=== PATIENT | female | born 1955 | race Caucasian/White ===

== ENCOUNTER 2016-10-15 13:20 | Emergency (ER) | payer MEDICAID ==
--- NOTE | 2016-10-15 14:26 | ED Physician Documentation ---
History of Present Illness - Stated complaint Stated Complaint: MED REFILLS - Chief complaint Chief Complaint: General - Additonal information Additional information: hx from pt 61 f moved back to [place] lost her meds on plane has no PMD here no complaints - no fever chills NVD no ROBETRS CP AP she takes coumadin for hx PE DVT - but denies CP and SOA Review of Systems Constitutional: denies: Fever, Chills Cardiac: denies: Chest pain / pressure Respiratory: denies: Dyspnea, Cough GI: denies: Abdominal Pain, Vomiting, Diarrhea Endocrine: reports: Easy bruising / bleeding (but did not take coumadin for 10 days now) Immunocompromised: denies: Immunocompromised PD PAST MEDICAL HISTORY - Past Medical History Past Medical History: Yes Cardiovascular: Hypertension, High cholesterol, Deep vein thrombosis, Pulmonary embolism Endocrine/Autoimmune: Type 2 diabetes - Past Surgical History Past Surgical History: Yes General: Cholecystectomy - Present Medications Home Medications: Ambulatory Orders Medication Instructions Recorded Confirmed HYDROcod/ACETAM 5/325 [[place] 5/325] 1 - 2 ea PO Q6H PRN #20 tablet 12/09/1404/02 Lisinopril 5 g PO DAILY 12/09/14 10/15/16 Metformin HCl 1,000 mg PO BID 12/09/14 10/15/16 Omeprazole 40 mg PO DAILY 12/09/14 10/15/16 Spironolactone 25 mg PO DAILY 12/09/14 10/15/16 Warfarin Sodium [Coumadin] 2.5 mg PO DAILY 12/09/14 10/15/16 glipiZIDE [Glucotrol] 5 mg PO BID 12/09/14 10/15/16 Ascorbic Acid [Vitamin C] 1,000 mg PO DAILY 10/15/16 10/15/16 Atorvastatin Calcium [Lipitor] 80 mg PO DAILY 10/15/16 10/15/16 Atorvastatin Calcium [Lipitor] 80 mg PO DAILY #30 tablet 10/15/16 Cholecalciferol (Vitamin D3) 1 cap PO DAILY 10/15/16 10/15/16 [Vitamin D3] Glipizide 5 mg PO BID #60 tablet 10/15/16 Magnesium Oxide [Magnesium] 400 mg PO DAILY 10/15/16 10/15/16 Niacin (Inositol Niacinate) 500 mg PO DAILY 10/15/16 10/15/16 [Niacin 500 mg Capsule] [place]-3S/Dha/Epa/Fish Oil [Fish 1 cap PO BID 10/15/16 10/15/16 Oil 1,200 mg Softgel] Omeprazole 40 mg PO DAILY #30 capsule. 10/15/16 Ranitidine HCl 150 mg PO BID 10/15/16 10/15/16 Ranitidine HCl 150 mg PO BID #60 tablet 10/15/16 Warfarin [Coumadin] 2.5 mg PO DAILY #30 tablet 10/15/16 metFORMIN [Glucophage] 1,000 mg PO BIDWM #60 tablet 10/15/16 - Allergies Allergies/Adverse Reactions: Allergies Allergy/AdvReac Type Severity Reaction Status Date / Time erythromycin base Allergy Unknown Verified 10/15/16 14:13 - Social History Does the pt smoke?: No Smoking Status: Never smoker Does the pt drink ETOH?: No Does the pt have substance abuse?: No - Immunizations Immunizations are current?: Yes - POLST Patient has POLST: No PD ED PE NORMAL - Vitals Vital signs reviewed: Yes - General General: Alert and oriented X 3 - Cardiac Cardiac: RRR - Respiratory Respiratory: No respiratory distress, Clear bilaterally - Abdomen Abdomen: Soft, Non tender Results - Vitals Vitals: Vital Signs - 24 hr 10/15/16 13:35 Temperature 36.6 C Heart Rate 69 Respiratory 18 Rate Blood Pressure 138/73 H O2 Saturation 97 Oxygen O2 Source Room air Departure - Departure Disposition: 01 Home, Self Care Clinical Impression: Medication refill Condition: Good Prescriptions: Warfarin [Coumadin] 2.5 mg PO DAILY #30 tablet Glipizide 5 mg PO BID #60 tablet metFORMIN [Glucophage] 1,000 mg PO BIDWM #60 tablet Atorvastatin Calcium [Lipitor] 80 mg PO DAILY #30 tablet Omeprazole 40 mg PO DAILY #30 capsule. Ranitidine HCl 150 mg PO BID #60 tablet Comments: I have refilled all your medications exactly as noted on your medication list - except the lisinopril and insulin which you already have The social workers were asked to help establish you with a new local PMD - specifically you need to have your INR checked on a regular basis If for some reason you cannot get established with a PMD to get your INR rechecked even with the social works assistance, come back to the ER in 2 weeks to get it checked
[2016-10-15 15:24] VITALS: BP 140/71
== END 2016-10-15 15:23 | disposition home or self-care (01) ==
LOC: ED 13:20
DX: Z76.0 Encounter for issue of repeat prescription (principal); I10 Essential (primary) hypertension; E11.9 Type 2 diabetes mellitus without complications; Z86.718 Personal history of other venous thrombosis and embolism; Z86.711 Personal history of pulmonary embolism; Z79.01 Long term (current) use of anticoagulants
CPT/HCPCS: 99281; 99282; 99283

== ENCOUNTER 2016-11-27 18:45 | Emergency (ER) | payer MEDICAID ==
[2016-11-27 19:02] VITALS: BP 165/80
--- NOTE | 2016-11-27 20:17 | ED Physician Documentation ---
History of Present Illness - Stated complaint Stated Complaint: PRESCRIPTION REFILL - Chief complaint Chief Complaint: General - Additonal information Additional information: hx from pt 61 female recently moved back to [facility] seen by me 10/15 after she lost all her meds and needed refills I asked SW to meet with pt to assist with establishing a PMD and advised pt of importnce of getting INR checked while on coumadin and to come back to ED for INR if still did not have a PMD she still has not established with a PMD and has not had her INR checked needs meds refilled again states otherwise well no fever cough NVD CP SOA etc Review of Systems Constitutional: denies: Fever Cardiac: denies: Chest pain / pressure Respiratory: denies: Dyspnea, Cough GI: denies: Abdominal Pain, Vomiting, Diarrhea Endocrine: reports: Easy bruising / bleeding (coumadin) Immunocompromised: denies: Immunocompromised PD PAST MEDICAL HISTORY - Past Medical History Cardiovascular: Hypertension, High cholesterol, Deep vein thrombosis, Pulmonary embolism Endocrine/Autoimmune: Type 2 diabetes - Past Surgical History Past Surgical History: Yes General: Cholecystectomy - Present Medications Home Medications: Ambulatory Orders Medication Instructions Recorded Confirmed HYDROcod/ACETAM 5/325 [[place] 5/325] 1 - 2 ea PO Q6H PRN #20 tablet 12/09/1404/02 Lisinopril 5 g PO DAILY 12/09/14 10/15/16 Metformin HCl 1,000 mg PO BID 12/09/14 10/15/16 Omeprazole 40 mg PO DAILY 12/09/14 10/15/16 Spironolactone 25 mg PO DAILY 12/09/14 10/15/16 Warfarin Sodium [Coumadin] 2.5 mg PO DAILY 12/09/14 10/15/16 glipiZIDE [Glucotrol] 5 mg PO BID 12/09/14 10/15/16 Ascorbic Acid [Vitamin C] 1,000 mg PO DAILY 10/15/16 10/15/16 Atorvastatin Calcium [Lipitor] 80 mg PO DAILY 10/15/16 10/15/16 Atorvastatin Calcium [Lipitor] 80 mg PO DAILY #30 tablet 10/15/16 Cholecalciferol (Vitamin D3) 1 cap PO DAILY 10/15/16 10/15/16 [Vitamin D3] Glipizide 5 mg PO BID #60 tablet 10/15/16 Magnesium Oxide [Magnesium] 400 mg PO DAILY 10/15/16 10/15/16 Niacin (Inositol Niacinate) 500 mg PO DAILY 10/15/16 10/15/16 [Niacin 500 mg Capsule] [place]-3S/Dha/Epa/Fish Oil [Fish 1 cap PO BID 10/15/16 10/15/16 Oil 1,200 mg Softgel] Omeprazole 40 mg PO DAILY #30 capsule. 10/15/16 Ranitidine HCl 150 mg PO BID 10/15/16 10/15/16 Ranitidine HCl 150 mg PO BID #60 tablet 10/15/16 Warfarin [Coumadin] 2.5 mg PO DAILY #30 tablet 10/15/16 metFORMIN [Glucophage] 1,000 mg PO BIDWM #60 tablet 10/15/16 Atorvastatin Calcium [Lipitor] 80 mg PO DAILY #30 tablet 11/27/16 Glipizide 5 mg PO BID #60 tablet 11/27/16 Lisinopril 5 mg PO DAILY #30 tablet 11/27/16 Omeprazole 40 mg PO DAILY #30 capsule. 11/27/16 Ranitidine HCl 150 mg PO BID #60 tablet 11/27/16 Warfarin [Coumadin] 2.5 mg PO DAILY #30 tablet 11/27/16 metFORMIN [Glucophage] 1,000 mg PO BIDWM #60 tablet 11/27/16 - Allergies Allergies/Adverse Reactions: Allergies Allergy/AdvReac Type Severity Reaction Status Date / Time erythromycin base Allergy Unknown Verified 11/27/16 18:57 - Social History Does the pt smoke?: No Smoking Status: Never smoker Does the pt drink ETOH?: No Does the pt have substance abuse?: No - Immunizations Immunizations are current?: Yes - POLST Patient has POLST: No PD ED PE NORMAL - Vitals Vital signs reviewed: Yes - General General: Alert and oriented X 3 - HEENT HEENT: PERRL - Neck Neck: Supple, no meningeal sign - Cardiac Cardiac: RRR - Respiratory Respiratory: No respiratory distress, Clear bilaterally Results - Vitals Vitals: Vital Signs - 24 hr 11/27/16 18:51 Temperature 36.4 C L Heart Rate 83 Respiratory 18 Rate Blood Pressure 165/80 H O2 Saturation 99 Oxygen O2 Source Room air PD MEDICAL DECISION MAKING - ED course ED course: INR 1.7, FSBS 97 Departure - Departure Disposition: 01 Home, Self Care Clinical Impression: Medication refill Condition: Good Follow-Up: [facility] [Provider Group] Prescriptions: Warfarin [Coumadin] 2.5 mg PO DAILY #30 tablet Glipizide 5 mg PO BID #60 tablet metFORMIN [Glucophage] 1,000 mg PO BIDWM #60 tablet Atorvastatin Calcium [Lipitor] 80 mg PO DAILY #30 tablet Lisinopril 5 mg PO DAILY #30 tablet Omeprazole 40 mg PO DAILY #30 capsule. Ranitidine HCl 150 mg PO BID #60 tablet Comments: I have refilled your medication exacly as they were on the list you provided me - please double check your prescriptions to make sure the doses and timing are your usual dosing and timing. Please call [facility] to establish care. Your INR was low today 1.7 but you are out of medications. Please take the coumadin as prescribed and get your INR checked in one week - ideally through your new PMD otherwise you will have to come back to the ER Also your blood pressure was high - please have your PMD recheck it
== END 2016-11-27 20:29 | disposition home or self-care (01) ==
LOC: ED 18:45
DX: Z76.0 Encounter for issue of repeat prescription (principal); I10 Essential (primary) hypertension; E78.00 Pure hypercholesterolemia, unspecified; Z86.711 Personal history of pulmonary embolism; Z86.718 Personal history of other venous thrombosis and embolism; Z79.01 Long term (current) use of anticoagulants; E11.9 Type 2 diabetes mellitus without complications; Z79.84 Long term (current) use of oral hypoglycemic drugs
CPT/HCPCS: 85610; 99281; 99283

== ENCOUNTER 2017-08-25 08:00 | Outpatient (CLI) | payer MEDICAID ==
[2017-08-25 13:54] LABS: HB2 TOTAL 13.6 g/dL; HEMOGLOBIN A1C 0.96 g/dL; HEMOGLOBIN A1C % 8.6 % (4.6-6.2)
== END 2017-08-25 08:01 | disposition home or self-care (01) ==
LOC: LAB.N 08:00
PROVIDERS: ATTEND Physician Assistant Medical
DX: E11.9 Type 2 diabetes mellitus without complications (principal); D68.59 Other primary thrombophilia; Z79.01 Long term (current) use of anticoagulants; Z86.711 Personal history of pulmonary embolism; Z86.72 Personal history of thrombophlebitis
CPT/HCPCS: 36415; 83036; 85610

== ENCOUNTER 2018-06-17 08:00 | Outpatient (CLI) | payer MEDICAID ==
[2018-06-17 19:07] LABS: CALCIUM 9.4 mg/dL (8.5-10.3); CREATININE 0.9 mg/dL (0.4-1.0)
[2018-06-17 19:10] LABS: HB2 TOTAL 13.8 g/dL; HEMOGLOBIN A1C 0.72 g/dL; HEMOGLOBIN A1C % 6.9 % (4.6-6.2)
[2018-06-17 19:51] LABS: BASOPHILS % (AUTO) 0.5 %; EOSINOPHILS # (AUTO) 0.3 10^3/uL (0.0-0.7); EOSINOPHILS % (AUTO) 2.9 %; LYMPHOCYTES # (AUTO) 2.5 10^3/uL (1.5-3.5); LYMPHOCYTES % (AUTO) 28.6 %; MEAN CORPUSCULAR HEMOGLOBIN 28.9 pg (27.0-31.0); MEAN CORPUSCULAR HGB CONC 32.8 g/dL (32.0-36.0); MEAN CORPUSCULAR VOLUME 88.3 fL (81.0-99.0); MEAN PLATELET VOLUME 10.2 fL (7.9-10.8); MONOCYTES # (AUTO) 0.4 10^3/uL (0.0-1.0); MONOCYTES % (AUTO) 4.9 %; NEUTROPHILS # (AUTO) 5.6 10^3/uL (1.5-6.6); NEUTROPHILS % (AUTO) 63.1 %; PLT - PLATELET COUNT 217 10^3/uL (130-450); RED BLOOD COUNT 4.48 10^6/uL (4.20-5.40); RED CELL DISTRIBUTION WIDTH 14.3 % (12.0-15.0); WHITE BLOOD COUNT 8.8 x10^3/uL (4.8-10.8)
== END 2018-06-17 23:59 | disposition home or self-care (01) ==
LOC: LAB.N 08:00
PROVIDERS: ATTEND Physician Assistant Medical
DX: E78.5 Hyperlipidemia, unspecified (principal); E11.9 Type 2 diabetes mellitus without complications; I10 Essential (primary) hypertension
CPT/HCPCS: 36415; 80048; 83036; 84443; 85025

== ENCOUNTER 2018-06-25 08:00 | Outpatient (CLI) | payer MEDICAID ==
[2018-06-25 19:19] LABS: BASOPHILS % (AUTO) 0.4 %; EOSINOPHILS # (AUTO) 0.3 10^3/uL (0.0-0.7); EOSINOPHILS % (AUTO) 3.7 %; HGB - HEMOGLOBIN 12.6 g/dL (12.0-16.0); LYMPHOCYTES # (AUTO) 2.4 10^3/uL (1.5-3.5); LYMPHOCYTES % (AUTO) 33.6 %; MEAN CORPUSCULAR HEMOGLOBIN 28.8 pg (27.0-31.0); MEAN CORPUSCULAR HGB CONC 32.5 g/dL (32.0-36.0); MEAN CORPUSCULAR VOLUME 88.4 fL (81.0-99.0); MEAN PLATELET VOLUME 10.5 fL (7.9-10.8); MONOCYTES # (AUTO) 0.4 10^3/uL (0.0-1.0); MONOCYTES % (AUTO) 5.4 %; NEUTROPHILS % (AUTO) 56.9 %; PLT - PLATELET COUNT 213 10^3/uL (130-450); RED BLOOD COUNT 4.39 10^6/uL (4.20-5.40); RED CELL DISTRIBUTION WIDTH 13.6 % (12.0-15.0); WHITE BLOOD COUNT 7.1 x10^3/uL (4.8-10.8)
[2018-06-25 20:53] LABS: ALBUMIN/GLOBULIN RATIO 1.1 (1.0-2.2); BILIRUBIN,TOTAL 0.6 mg/dL (0.2-1.0); CALCIUM 9.2 mg/dL (8.5-10.3); CREATININE 0.9 mg/dL (0.4-1.0); TOTAL PROTEIN 7.5 g/dL (6.7-8.2)
[2018-06-25 21:08] LABS: THYROID STIMULATING HORMONE 0.9 uIU/mL (0.34-5.60)
[2018-06-25 21:20] LABS: FOLATE 15.05 ng/mL (5.90 - >24.8)
== END 2018-06-25 23:59 | disposition home or self-care (01) ==
LOC: LAB.N 08:00
PROVIDERS: ATTEND Family Medicine
DX: R41.0 Disorientation, unspecified (principal); R41.3 Other amnesia
CPT/HCPCS: 36415; 80053; 81599; 82607; 82746; 84443; 85025; 86592

== ENCOUNTER 2018-09-07 09:32 | Outpatient (CLI) | payer MEDICAID | END 2018-09-07 23:59 | disposition home or self-care (01) | LOC: LAB.N 09:32 | PROVIDERS: ATTEND Physician Assistant Medical | DX: Z79.01 Long term (current) use of anticoagulants (principal); Z86.711 Personal history of pulmonary embolism | CPT/HCPCS: 85610 ==

== ENCOUNTER 2018-09-11 11:58 | Outpatient (CLI) | payer MEDICAID | END 2018-09-11 23:59 | disposition home or self-care (01) | LOC: LAB.N 11:58 | PROVIDERS: ATTEND Physician Assistant Medical | DX: Z79.01 Long term (current) use of anticoagulants (principal); Z86.711 Personal history of pulmonary embolism | CPT/HCPCS: 85610 ==